=== PATIENT | female | born 1965 | race American Indian/Alaskan Native ===

== ENCOUNTER 2017-09-09 08:04 | Outpatient (CLI) | payer OTHER ==
--- NOTE | 2017-09-09 11:39 | Ultrasound Report ---
ABDOMINAL ULTRASOUND: 09/09/17 08:04:00 CLINICAL: Abdominal pain. FINDINGS: High-resolution ultrasound demonstrated a normal size liver with mild diffuse increased echogenicity.. No liver mass. Normal hepatic vasculature and inferior vena cava. Normal gallbladder and bile ducts. Wall measures 2 mm in thickness. The common bile duct measures 4 mm diameter. The pancreas was partially imaged due to bowel gas obscuring the distal body and tail. Normal pancreatic head and proximal body. Normal abdominal aorta. Upper normal size spleen measures 11.5cm. Normal kidneys with normal echogenicity and normal non-dilated renal collecting systems and ureters. The right kidney measures 10.3 x 3.8 x 4.8cm. The left kidney measures 10.9 x 5.1 x 5.1cm. No renal mass or calculus. No ascites or mass. IMPRESSION: Suspect mild hepatic steatosis. Normal biliary tract. Upper normal size spleen.
== END 2017-09-09 08:05 | disposition home or self-care (01) ==
LOC: SPVWC 08:04 → EDBD 08:15
PROVIDERS: ATTEND Family Medicine
DX: R10.9 Unspecified abdominal pain (principal)
CPT/HCPCS: 76700

== ENCOUNTER 2017-12-02 12:43 | Outpatient (CLI) | payer OTHER | END 2017-12-02 12:44 | disposition home or self-care (01) | LOC: VAS 12:43 | PROVIDERS: ATTEND Family Medicine | DX: M79.661 Pain in right lower leg (principal); M79.662 Pain in left lower leg; M79.89 Other specified soft tissue disorders | CPT/HCPCS: 93970 ==

== ENCOUNTER 2017-12-28 11:55 | Outpatient (CLI) | payer OTHER ==
--- NOTE | 2017-12-28 12:13 | XRay Report ---
CHEST 2 VIEWS INDICATION: Dyspnea. COMPARISON: None similar. FINDINGS: PA and lateral chest radiographs demonstrate normal cardiomediastinal silhouette. Clear, well-expanded lungs. Right hemidiaphragm minimally elevated. Possible osteopenia and mild multilevel thoracic spine degenerative spurring. CONCLUSION: No acute chest process, as described. Thank you for the opportunity to participate in this patient's care.
== END 2017-12-28 11:56 | disposition home or self-care (01) ==
LOC: SPVIMAG 11:55
PROVIDERS: ATTEND Family Medicine
DX: J98.6 Disorders of diaphragm (principal); M53.84 Other specified dorsopathies, thoracic region
CPT/HCPCS: 71046